=== PATIENT | female | born 1935 | race Caucasian/White ===

== ENCOUNTER 2021-10-14 13:59 | Inpatient (IN) ==
[2021-10-14] MEDS ORDERED: IOPAMIDOL 100 ML BOTTLE IV ONE (14:00)
[2021-10-14] MEDS ORDERED: 0.9 % SODIUM CHLORIDE 1,000 ML IV ONE ×2 (14:46→18:36)
--- NOTE | 2021-10-14 14:53 | Emergency Department Note ---
Weakness HPI <Jas Herrmann PA-C - Last Filed: 10/14/21 20:03> General Chief complaint: Weakness Stated complaint: weakness Time Seen by Provider: 10/14/21 14:05 Source: patient Mode of arrival: wheelchair Limitations: no limitations History of Present Illness HPI Narrative: Narrative: 86-year-old female with a history of hypertension, glaucoma, subclavian steal syndrome, left bundle branch block, carotid stent occlusion, GERD, CAD, dysphagia, gout and irritable bowel syndrome presents the ER to be evaluated for weakness. Over the last 3 days she has had a constellation of symptoms including vertigo, increased blurred vision, weakness of the upper and lower extremities and difficulty ambulating. She states she normally does not have difficulty walking but feels like her legs are noodles. She states she has not had necessarily coordination issues but feels profoundly weak. She has not had any recent illness, bouts of diarrhea or vaccinations. She denies numbness or tingling in her lower or upper extremities just weakness and the other associated symptoms. She denies confusion, focal deficit, chest pain, chest pressure, shortness of breath, dysuria, urgency, frequency or abdominal pain. She does take Plavix. She states she also accidentally took her blood pressure medication twice today, normally her blood pressure is controlled. She sees Dr. David Rodrigez for her cardiology needs. Related Data Home Medications Medication Instructions Recorded Confirmed Lactobacillus acidophilus and 1 cap PO QAM cap 06/05/19 10/16/21 rhamnosus 10 billion cell capsule (Digestive Health Probiotic) [id number] [Beano] PO PRN 06/05/19 07/09/19 ascorbate calcium (vitamin C) 1,200 mg PO DAILY 06/05/19 10/15/21 multivitamin (Daily Multi-Vitamin) 1 tab PO QAM 06/05/19 10/15/21 latanoprost 0.005 % eye drops 1 drp OPHTHALMIC (EYE) HS 10/14/21 10/15/21 lubiprostone 24 mcg capsule 1 cap PO BID 10/14/21 10/15/21 timolol maleate 0.5 % eye drops 1 drp OPHTHALMIC (EYE) BID 10/14/21 10/15/21 omeprazole 40 mg capsule,delayed 1 cap PO QAM 04/21/22 04/21/22 release Previous Rx's Medication Instructions Recorded amlodipine 10 mg tablet 10 mg PO DAILY #90 tab 07/09/19 bisoprolol fumarate 10 mg tablet 10 mg PO DAILY #90 tab 07/09/19 chlorthalidone 25 mg tablet 25 mg PO DAILY #90 tab 07/09/19 clopidogrel 75 mg tablet 75 mg PO DAILY #90 tab 07/09/19 telmisartan 80 mg tablet 80 mg PO DAILY #90 tab 05/15/20 atorvastatin 40 mg tablet 40 mg PO QPM #30 tab 08/11/20 Allergies Allergy/AdvReac Type Severity Reaction Status Date / Time codeine [Codeine] Allergy Unknown Unknown Verified 10/14/21 14:02 lisinopril Allergy unknown Verified 10/14/21 14:02 Review of Systems <Jas Herrmann PA-C - Last Filed: 10/14/21 20:03> ROS ROS Narrative: Narrative: All systems ED: reviewed and negative except as stated. PFSH <Jas Herrmann PA-C - Last Filed: 10/14/21 20:03> Narrative Patient History Narrative: Narrative: Medical/Surgical/Family History All Active Problems (Updated 10/14/21 @ 18:54 by Jas Herrmann PA-C) Accidental overdose (Acute) Weakness (Acute) Neurological symptoms (Acute) Acute hypotension (Acute) HTN (hypertension) (Chronic) Influenza vaccine refused (Chronic) History of glaucoma (Chronic) Overweight (Chronic) Sciatica (Chronic) Actinic keratosis (Chronic) History of skin cancer (Chronic) Diarrhea (Chronic) Nail dystrophy (Chronic) History of EKG (Chronic) Peripheral vascular disease (Chronic) History of mitral valve insufficiency (Chronic) History of echocardiogram (Chronic ~11/2017) Carotid bruit (Chronic) Myositis, unspecified (Chronic) Menopausal syndrome (Chronic ~09/15/17) Bladder dysfunction (Chronic ~09/15/17) Subclavian steal syndrome (Chronic) Complete left bundle branch block (Chronic) Hyperlipidemia (Chronic ~09/26/18) Carotid stent occlusion (Chronic) GERD (gastroesophageal reflux disease) (Chronic) Gout (Chronic) Coronary artery disease (Chronic) Constipation (Chronic) Dysphagia (Chronic) IBS (irritable bowel syndrome) (Chronic) Medical History (Updated 10/14/21 @ 18:54 by Jas Dombey, PA-C) Actinic keratosis Bladder dysfunction (~09/15/17) Carotid bruit Carotid stent occlusion Complete left bundle branch block Constipation Coronary artery disease Diarrhea Dysphagia GERD (gastroesophageal reflux disease) Gout History of echocardiogram (~11/2017) History of EKG History of glaucoma History of mitral valve insufficiency History of skin cancer Hyperlipidemia (~09/26/18) Hypertension IBS (irritable bowel syndrome) Menopausal syndrome (~09/15/17) Myositis, unspecified Nail dystrophy Overweight Peripheral vascular disease Sciatica Subclavian steal syndrome Surgical History H/O hemicolectomy History of appendectomy History of colonoscopy History of hysterectomy History of surgery 2 Back surgeries, back fusion History of surgery Left Thumb Hx of removal of ovary Had Endometriosis S/P right colectomy (~01/2010) For Lipoma with Dr Dyson Family History Mother Lung cancer Brother Lung cancer Asthma Diabetes mellitus Sister Lung cancer Asthma Father Myocardial infarction Pulmonary emphysema Chronic lung disease Son , Age 38 Alcoholism Hepatic failure Social History Smoking Status: Never smoker Alcohol Intake Frequency: holiday/special occasion only Substance Use: does not use Exam <Jas Herrmann PA-C - Last Filed: 10/14/21 20:03> Narrative Narrative: Narrative: Gen: No acute distress Eyes: PERRL, no conjunctival injection , and symmetrical lids. Sclerae non icteric HENMT: Normocephalic Atraumatic head, external nose and ears. Dry MM. Neck: Symmetric, trachea midline, no lymphadenopathy, no JVD CVS: +S1/S2, No murmurs or gallops. Radial pulses 2+ and equal bilat. No swelling RESP: Unlabored respiratory effort . Clear to auscultation bilaterally (CTAB). No noted wheezes rales or ronchi. GI: Nontender/Nondistended (NTND), No focal tenderness MSK: Extremities w/o deformity or ttp. No cyanosis or clubbing. Skin: Warm, Dry . No rashes or lesions . Cap refill less than 2. Neuro: Cranial nerves III through XII intact, patient has normal rate and rhythm of speech, normal [id number], normal aeqp-jk-klav, normal strength in the upper and lower extremities to exam. Weakness is subjective to patient. Normal rapid alternating movement. No obvious cerebellar signs. Psych: Awake, Alert, & Oriented (AAO) x3. Appropriate mood and affect . General Limitations: no limitations Course <Jas Herrmann PA-C - Last Filed: 10/14/21 20:03> Vital Signs Vital signs: Vital Signs Temperature 98.4 F 10/14/21 14:00 Pulse Rate 73 10/14/21 14:00 Respiratory Rate 18 10/14/21 14:00 Blood Pressure 181/70 10/14/21 14:00 Pulse Oximetry (%) 96 10/14/21 14:00 Temperature 98.2 F 10/16/21 08:01 Pulse Rate 66 10/16/21 08:01 Respiratory Rate 16 10/16/21 10:01 Blood Pressure 139/53 10/16/21 10:01 Pulse Oximetry (%) 92 10/16/21 10:01 [facility] <Jas Herrmann PA-C - Last Filed: 10/14/21 20:03> MDM Narrative Medical decision making narrative: Narrative: Given the constellation of symptoms including vision changes, vertigo, upper and lower extremity weakness and ataxia for the last 3 days I have concern for posterior fossa stroke. Patient will be evaluated with CT and CTA. She does have a history of subclavian steal syndrome as well as carotid stenosis with a previous occluded stent. She is a vasculopath and at high risk for sequelae to include stroke. She does have a rather unremarkable exam and her NIH would be 0 at this time however her symptoms are consistent with this pathology. Ojsbl-yu-cexp creatinine will be obtained and if her kidney function is normal she will be evaluated with a CT of the head and CTA of the head and neck. Coags, EKG, CBC and CMP are to follow. Patient is hypotensive with a systolic in the 80s. She took 2 doses of her blood pressure medication on accident she will be given a 1 L fluid bolus at this time and will be monitored. She takes amlodipine, bisoprolol, chlorthalidone and telmisartan. She took all of these medications twice CBC: Unremarkable CMP: Unremarkable Coags: Unremarkable EKG: Normal sinus rhythm with a left bundle branch block at a rate of 72 bpm, negative Sgarrbossa criteria, no evidence of acute ischemia. CT head:IMPRESSION: Mild atrophy and chronic ischemic changes in the deep cerebral white matter-expected for age. No acute findings CTA Head: IMPRESSION: 1. No evidence of thrombus or embolus within the intracerebral arterial vasculature. 2. 80% stenosis of the posterior M2 division right middle cerebral artery. 3. Heavy calcific plaque in the cavernous segments of both intracranial internal carotid arteries resulting in mild-less than 50% stenoses 4. Scattered stenoses ranging up to 50% within the remaining anterior middle and posterior cerebral arteries. CTA Neck: IMPRESSION: Heavy calcific atherosclerotic plaque throughout the brachiocephalic artery resulting in a stenosis of 50% or greater. Calcific plaque in the proximal left subclavian artery resulting in stenosis less then 50% Both vertebral, internal common and external carotid arteries are widely patent Patient remains neurologically intact however her blood pressure has been hovering around a map of 65 occasionally of a MAP in the 50s. She is normally mentating. However I am reluctant to ambulate her with her blood pressure being this low. Her neurological exam is otherwise completely normal with an NIH of 0. I would like to bring her in for observation due to the ingestion of her blood pressure medications and her secondary hypotension. I will also reach out to [facility] to discuss the case and her stenosis of the M2 segment of her brain. Dr Castillo: Graciously agreed to accept the patient but would like me to discuss with neurology how to work-up this patient. Work up like stroke? Echo, Mri? Pressors for pressure? Guillain Ava? [facility]: Dr Dhillon: Concerned for low blood pressure, incidental findings, Once blood pressure normalizes she suggests MRI. Consider adding 81mg aspirin on top of plavix due to intracranial and extracranial stenos is and possibly increasing statin. PT/OT consult. Patient will be given another liter of fluids, gram of calcium gluconate will be started on a Levophed drip. Dr. Castillo will be down shortly to see the patient. She does have a POLST form filled out that is at [facility]. She does wish to have her blood pressure corrected even if that requires ICU level care with vasopressors. She however likely will not be amenable to MRI or echocardiogram as she sees no use in these given her age. Patient states she was having chest pressure before she went up to the floor. Repeat EKG was obtained. Normal sinus rhythm rate of 85 bpm with left bundle branch block. Baseline wander in leads II, III and aVF. When compared to previous earlier there are no significant changes no evidence of acute ischemia. Iswiq-ts-hbjl troponin was obtained. Point care troponin: Lab Data Result diagrams: 10/16/21 05:28 10/16/21 05:28 Labs: Lab Results 10/14/21 10/14/21 10/14/21 Range/Units 14:45 14:45 14:45 WBC 11.5 H (4.5-11.0) K/mcL RBC 4.60 (3.59-5.38) M/mcL Hgb 13.5 (11.2-15.7) g/dL Hct 39.8 (34.1-44.9) % MCV 86.5 (80.0-100.0) fL MCH 29.3 (26.0-34.0) pg MCHC 33.9 (31.0-36.0) g/dL RDW 12.5 (11.5-14.5) % Plt Count 340 (140-440) K/mcL MPV 9.3 (7.4-10.4) fL Neut % (Auto) 60.1 (38.0-78.0) % Lymph % (Auto) 26.3 (15.5-49.0) % [place] % (Auto) 11.2 (1.0-12.0) % Eos % (Auto) 1.7 (0.0-7.0) % Baso % (Auto) 0.7 (0.0-2.0) % Lymph # (Auto) 3.02 (1.50-4.80) K/mcL [place] # (Auto) 1.28 H (0.10-0.90) K/mcL Eos # (Auto) 0.19 (0.00-0.70) K/mcL Baso # (Auto) 0.08 (0.00-0.30) K/mcL Absolute Neutrophils 6.90 (1.80-8.00) K/mcL PT 13.7 (11.9-14.5) sec INR 1.0 (0.9-1.1) APTT 29.7 (20.0-37.0) sec Sodium 134 (133-145) mmol/L Potassium 3.4 (3.3-5.1) mmol/L Chloride 95 L (96-108) mmol/L Carbon Dioxide 26 (22-30) mmol/L Anion Gap 13.0 (8.0-16.0) BUN 18 (8-23) mg/dL Creatinine 0.8 (0.6-1.1) mg/dL POC Creatinine GFR Calculation 66 Glucose 119 H (70-105) mg/dL Calcium 9.8 (8.6-10.4) mg/dL Total Bilirubin 0.4 (0.1-1.0) mg/dL AST 26 (<32) U/L ALT 18 (<40) U/L Alkaline Phosphatase 52 (39-117) U/L Total Protein 7.4 (5.9-8.4) gm/dL Albumin 4.1 (3.2-5.2) gm/dL Globulin 3.3 (2.2-3.7) gm/dL Albumin/Globulin Ratio 1.2 (1.0-2.3) POC Troponin I 10/14/21 10/14/21 10/14/21 Range/Units 15:06 15:10 20:18 WBC (4.5-11.0) K/mcL RBC (3.59-5.38) M/mcL Hgb (11.2-15.7) g/dL Hct (34.1-44.9) % MCV (80.0-100.0) fL MCH (26.0-34.0) pg MCHC (31.0-36.0) g/dL RDW (11.5-14.5) % Plt Count (140-440) K/mcL MPV (7.4-10.4) fL Neut % (Auto) (38.0-78.0) % Lymph % (Auto) (15.5-49.0) % [place] % (Auto) (1.0-12.0) % Eos % (Auto) (0.0-7.0) % Baso % (Auto) (0.0-2.0) % Lymph # (Auto) (1.50-4.80) K/mcL [place] # (Auto) (0.10-0.90) K/mcL Eos # (Auto) (0.00-0.70) K/mcL Baso # (Auto) (0.00-0.30) K/mcL Absolute Neutrophils (1.80-8.00) K/mcL PT (11.9-14.5) sec INR (0.9-1.1) APTT (20.0-37.0) sec Sodium (133-145) mmol/L Potassium (3.3-5.1) mmol/L Chloride (96-108) mmol/L Carbon Dioxide (22-30) mmol/L Anion Gap (8.0-16.0) BUN (8-23) mg/dL Creatinine (0.6-1.1) mg/dL POC Creatinine 0.9 GFR Calculation Glucose (70-105) mg/dL Calcium (8.6-10.4) mg/dL Total Bilirubin (0.1-1.0) mg/dL AST (<32) U/L ALT (<40) U/L Alkaline Phosphatase (39-117) U/L Total Protein (5.9-8.4) gm/dL Albumin (3.2-5.2) gm/dL Globulin (2.2-3.7) gm/dL Albumin/Globulin Ratio (1.0-2.3) POC Troponin I 0.01 ED POC Tests ED POC Tests: LINDA - SARS Antigen Negative CC TIME <Jas Herrmann PA-C - Last Filed: 10/14/21 20:03> Critical Care Time Critical Care Time: Yes Total Critical Care Time: 45 Attestation: Total critical care time of 45min including performance of history and physical exam, review of results, re-examinations, time spent documenting, psychiatric orderly, review of old records, discussions with patient and family, discussions with sr solutions consultant(s), discussion with admitting physician, completion of admission/transfer paperwork. This does not include time for any separately documented procedures. Discharge Plan Patient/Caregiver Discharge Instructions Pt seen by COMPLIANCE AIDE/PA only: No Clinical Impression: Accidental overdose, Weakness, Neurological symptoms, Acute hypotension Patient Disposition: Xfer As Inpt ([facility]) Discharge Date/Time: 10/14/21 20:43 Discharge Location: [facility]
[2021-10-14 15:27] LABS: Basophils # (Auto) 0.08 K/mcL (0.00-0.30); Basophils % (Auto) 0.7 % (0.0-2.0); Eosinophils # (Auto) 0.19 K/mcL (0.00-0.70); Eosinophils % (Auto) 1.7 % (0.0-7.0); Hematocrit 39.8 % (34.1-44.9); Hemoglobin 13.5 g/dL (11.2-15.7); Lymphocytes # (Auto) 3.02 K/mcL (1.50-4.80); Lymphocytes % (Auto) 26.3 % (15.5-49.0); Mean Cell Volume 86.5 fL (80.0-100.0); Mean Corpuscular HGB Conc 33.9 g/dL (31.0-36.0); Mean Platelet Volume 9.3 fL (7.4-10.4); Monocytes # (Auto) 1.28 K/mcL (0.10-0.90); Monocytes % (Auto) 11.2 % (1.0-12.0); Neutrophils % (Auto) 60.1 % (38.0-78.0); Platelet Count 340 K/mcL (140-440); Red Cell Distribution Width 12.5 % (11.5-14.5); WBC 11.5 K/mcL (4.5-11.0)
[2021-10-14 15:41] LABS: Partial Thromboplastin Time 29.7 sec (20.0-37.0); Prothrombin Time 13.7 sec (11.9-14.5)
[2021-10-14 15:44] LABS: ALT/SGPT 18 U/L (<40); AST/SGOT 26 U/L (<32); Albumin 4.1 gm/dL (3.2-5.2); Albumin/Globulin Ratio 1.2 (1.0-2.3); Alkaline Phosphatase 52 U/L (39-117); Bilirubin,Total 0.4 mg/dL (0.1-1.0); Blood Urea Nitrogen 18 mg/dL (8-23); Calcium 9.8 mg/dL (8.6-10.4); Carbon Dioxide 26 mmol/L (22-30); Chloride 95 mmol/L (96-108); Globulin 3.3 gm/dL (2.2-3.7); Glomerular Filtration Rate 66; Glucose 119 mg/dL (70-105)
--- NOTE | 2021-10-14 15:48 | Cat Scan Report ---
CLINICAL INFORMATION: Code stroke COMPARISON: None. TECHNIQUE: 2.5 mm helical slices were obtained in the skull base to vertex. Following reconstruction, axial reformatted images were reviewed at bone and parenchymal windows. The exam was performed using radiation dose optimization techniques including, but not limited to, automated exposure control, adjustment of the mA and/or kV according to patient size and use of iterative reconstruction technique. FINDINGS: The ventricles, sulci, fissures, and cisterns are symmetrically enlarged compatible with mild age-related atrophy. No extra-axial fluid collections are identified. Mild patchy chronic ischemic changes, in the deep cerebral white matter, are expected for age. There is no hemorrhage, mass effect, or edema. Bone windows show no osseous abnormality. IMPRESSION: Mild atrophy and chronic ischemic changes in the deep cerebral white matter-expected for age. No acute findings Interpreted and Authenticated by: Lalit Maldonado 10/14/21
--- NOTE | 2021-10-14 16:07 | Cat Scan Report ---
CLINICAL INFORMATION: Code stroke COMPARISON: None. TECHNIQUE: 80 cc of Isovue-370 were injected intravenously , and using SmartPrep to maximize cerebral arterial opacification, 0.625 mm helical slices were obtained from the skull base through the cerebral vertex. Following reconstruction , sagittal, coronal and axial reformatted images were processed and reviewed at multiple windows and levels. 3D volume rendered and MIP images were acquired at a independent workstation. The exam was performed using radiation dose optimization techniques including, but not limited to, automated exposure control, adjustment of the mA and/or kV according to patient size and use of iterative reconstruction technique. FINDINGS: There is heavy calcification within the cavernous segment of both intracranial internal carotid arteries resulting in mild less than 50% stenoses. 80% stenosis of the posterior division M2 right middle cerebral artery appreciated. The remainder of both middle cerebral, anterior and posterior cerebral arteries show scattered mild stenoses ranging up to 50%. There is no evidence of embolism or thrombosis. The superficial and deep cerebral veins and deep venous sites are widely patent. IMPRESSION: 1. No evidence of thrombus or embolus within the intracerebral arterial vasculature. 2. 80% stenosis of the posterior M2 division right middle cerebral artery. 3. Heavy calcific plaque in the cavernous segments of both intracranial internal carotid arteries resulting in mild-less than 50% stenoses 4. Scattered stenoses ranging up to 50% within the remaining anterior middle and posterior cerebral arteries. Interpreted and Authenticated by: Lalit Maldonado 10/14/21
--- NOTE | 2021-10-14 16:13 | Cat Scan Report ---
CLINICAL INFORMATION: Code stroke COMPARISON: None. TECHNIQUE: 80 cc of Isovue-300 were injected intravenously followed by 40 cc of normal saline flush. Using SmartPrep, 0.625 helical slices were obtained from the thoracic aortic arch through the [place]. Following reconstruction, 2.5 mm sagittal, coronal and axial reformatted images were processed. MIPS , 3-D volume rendering and CPR images were also constructed. The exam was performed using radiation dose optimization techniques including, but not limited to, automated exposure control, adjustment of the mA and/or kV according to patient size and use of iterative reconstruction technique. FINDINGS: The thoracic aortic arch is normal diameter with minimal intimal thickening and conventional aortic branching. Extremely heavy calcific plaque in the brachiocephalic artery obscures the true lumen. There is stenosis of 50% or greater in this region. The cardiac artifact from heavy calcification precludes accurate grading. There is also moderate calcific plaque in the proximal subclavian artery resulting in a stenosis less than 50%. The remainder of both subclavian, both vertebral both common internal and external carotid arteries are widely patent. No soft tissue abnormality. IMPRESSION: Heavy calcific atherosclerotic plaque throughout the brachiocephalic artery resulting in a stenosis of 50% or greater. Calcific plaque in the proximal left subclavian artery resulting in stenosis less then 50% Both vertebral, internal common and external carotid arteries are widely patent Interpreted and Authenticated by: Lalit Maldonado 10/14/21
[2021-10-14] MEDS ORDERED: CALCIUM GLUCONATE 4.65 MEQ/10 ML VIAL IV ONE (18:40)
--- NOTE | 2021-10-14 19:00 | Internal Med History&Physical ---
HPI History of Present Illness Patient information: Note initiated : 10/14/21 at 6:54 pm Service Date, if different from initiated Date: [] Patient: Dinorah Solorio 86 y/o F admitted on for weakness. Chief Complaint: [] History of present illness: Ms. 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 The patient presented to the emergency department with her daughter for difficulty walking, generalized weakness that has been bothering her for about 3 days as well as lack of appetite for about 7 days. In the emergency department there was concern for possible stroke, the patient had a noncontrast CT head followed by a CTA head and neck.There were no acute findings on the CT scans, the CTA head did show a 80% stenosis in the right M2 division of the right middle cerebral artery. There was heavy calcified plaque in the cavernous segment of both intracranial internal carotid arteries resulting in less than 50% stenosis. There was scattered stenosis up to 50% in the remaining anterior middle and posterior c erebral arteries. The CTA neck showed heavy calcific atherosclerotic plaque throughout the brachiocephalic artery resulting in stenosis of 50% or greater, calcified plaque in the proximal left subclavian artery resulting in stenosis less than 50%. Both vertebral internal common and external carotid arteries were widely patent. In addition, the patient was found to be extremely hypotensive. She did say that she took extra blood pressure pills today which is likely the reason for hypotension. Patient's vitals were otherwise stable. CBC showed a mild leukocytosis, complete metabolic panel was unremarkable. Telemetry stroke neurology was consulted, recommended a complete stroke work-up, starting aspirin and Plavix and maintaining normal blood pressure. Hospital medicine was consulted for admission. We discussed the plan of care in detail. The patient does not want an MRI or an echocardiogram as she does not feel it will chemical cell changer. She is okay with starting aspirin and Plavix as well as vasopressor support to maintain blood pressure. The patient wishes to be DNR/DNI. Review of systems Constitutional: Positive for fatigue, no fevers Eyes: no vision changes or pain Cardiovascular: no chest pain, no palpitations Respiratory: no cough or dyspnea Gastrointestinal: Positive for lack of appetite, early satiety. Genitourinary: no dysuria or difficulty voiding Musculoskeletal: no arthralgia or myalgia Integumentary: no skin lesion or wound Neurological: no focal weakness or numbness Psychiatric: no anxiety or depression Physical exam Head: Atraumatic, normal inspection. Eyes: normal appearance, no scleral icterus. Neck: full ROM Respiratory: no respiratory distress. Cardiovascular: normal rate and rhythm, S1, S2. GI/Abdominal: soft, nontender, no guarding. Extremities: full range of motion, nontender. Neurological: CN II-XII intact, intact motor, intact sensation. Psychiatric: normal mood. Skin: warm, normal color PFSH PFSH All Active Problems (Updated 10/14/21 @ 18:54 by Jas Herrmann PA-C) Accidental overdose (Acute) Weakness (Acute) Neurological symptoms (Acute) Acute hypotension (Acute) HTN (hypertension) (Chronic) Influenza vaccine refused (Chronic) History of glaucoma (Chronic) Overweight (Chronic) Sciatica (Chronic) Actinic keratosis (Chronic) History of skin cancer (Chronic) Diarrhea (Chronic) Nail dystrophy (Chronic) History of EKG (Chronic) Peripheral vascular disease (Chronic) History of mitral valve insufficiency (Chronic) History of echocardiogram (Chronic ~11/2017) Carotid bruit (Chronic) Myositis, unspecified (Chronic) Menopausal syndrome (Chronic ~09/15/17) Bladder dysfunction (Chronic ~09/15/17) Subclavian steal syndrome (Chronic) Complete left bundle branch block (Chronic) Hyperlipidemia (Chronic ~09/26/18) Carotid stent occlusion (Chronic) GERD (gastroesophageal reflux disease) (Chronic) Gout (Chronic) Coronary artery disease (Chronic) Constipation (Chronic) Dysphagia (Chronic) IBS (irritable bowel syndrome) (Chronic) Medical History (Updated 10/14/21 @ 18:54 by Jas Herrmann PA-C) Actinic keratosis Bladder dysfunction (~09/15/17) Carotid bruit Carotid stent occlusion Complete left bundle branch block Constipation Coronary artery disease Diarrhea Dysphagia GERD (gastroesophageal reflux disease) Gout History of echocardiogram (~11/2017) History of EKG History of glaucoma History of mitral valve insufficiency History of skin cancer Hyperlipidemia (~09/26/18) Hypertension IBS (irritable bowel syndrome) Menopausal syndrome (~09/15/17) Myositis, unspecified Nail dystrophy Overweight Peripheral vascular disease Sciatica Subclavian steal syndrome Surgical History H/O hemicolectomy History of appendectomy History of colonoscopy History of hysterectomy History of surgery 2 Back surgeries, back fusion History of surgery Left Thumb Hx of removal of ovary Had Endometriosis S/P right colectomy (~01/2010) For Lipoma with Dr Dyson Family History Mother Lung cancer Brother Lung cancer Asthma Diabetes mellitus Sister Lung cancer Asthma Father Myocardial infarction Pulmonary emphysema Chronic lung disease Son , Age 38 Alcoholism Hepatic failure Social History (Updated 07/11/19 @ 18:22 by Lanette Whitaker PA-C) marital status: occupational status: retired alcohol intake frequency: holiday/special occasion only substance use type: does not use MEDS/ALLERGIES Home Medications and Allergies Home Medications Medication Instructions Recorded Confirmed Type Lactobacillus acidophilus and cap PO QAM cap 06/05/19 07/09/19 History rhamnosus 10 billion cell capsule (Digestive Health Probiotic) [id number] [Beano] PO PRN 06/05/19 07/09/19 History ascorbate calcium (vitamin C) 1,200 mg PO 06/05/19 07/09/19 History multivitamin (Daily Multi-Vitamin) 1 tab PO QAM 06/05/19 07/09/19 History amlodipine 10 mg tablet 10 mg PO DAILY #90 tab 07/09/19 07/09/19 Rx bisoprolol fumarate 10 mg tablet 10 mg PO DAILY #90 tab 07/09/19 07/09/19 Rx chlorthalidone 25 mg tablet 25 mg PO DAILY #90 tab 07/09/19 07/09/19 Rx clopidogrel 75 mg tablet 75 mg PO DAILY #90 tab 07/09/19 07/09/19 Rx linaclotide 290 mcg capsule 290 mcg PO QDAY 07/09/19 07/09/19 History (Linzess) omeprazole 20 mg capsule,delayed 20 mg PO QDAY #90 cap 07/09/19 07/09/19 Rx release telmisartan 80 mg tablet 80 mg PO DAILY #90 tab 05/15/20 Rx atorvastatin 40 mg tablet 40 mg PO QPM #30 tab 08/11/20 Rx latanoprost 0.005 % eye drops 1 drp OPHTHALMIC (EYE) HS 10/14/21 History lubiprostone 24 mcg capsule 1 cap PO BID 10/14/21 History timolol maleate 0.5 % eye drops 1 drp OPHTHALMIC (EYE) BID 10/14/21 History Allergies Allergy/AdvReac Type Severity Reaction Status Date / Time codeine [Codeine] Allergy Unknown Unknown Verified 10/14/21 14:02 lisinopril Allergy unknown Verified 10/14/21 14:02 EXAM Constitutional Vitals: Temp Pulse Resp BP Pulse Ox 98.4 F 79 15 65/53 97 10/14/21 14:00 10/14/21 16:31 10/14/21 18:41 10/14/21 18:41 10/14/21 16:31 DATA Data Completed and Pending Labs: Labs from last 24 hours 10/14/21 10/14/21 10/14/21 15:10 15:06 14:45 WBC RBC Hgb Hct MCV MCH MCHC RDW Plt Count MPV Neut % (Auto) Lymph % (Auto) [place] % (Auto) Eos % (Auto) Baso % (Auto) Lymph # (Auto) [place] # (Auto) Eos # (Auto) Baso # (Auto) Absolute Neutrophils PT 13.7 INR 1.0 APTT 29.7 Sodium Potassium Chloride Carbon Dioxide Anion Gap BUN Creatinine POC Creatinine 0.9 GFR Calculation Glucose Calcium Total Bilirubin AST ALT Alkaline Phosphatase Total Protein Albumin Globulin Albumin/Globulin Ratio 10/14/21 10/14/21 14:45 14:45 WBC 11.5 H RBC 4.60 Hgb 13.5 Hct 39.8 MCV 86.5 MCH 29.3 MCHC 33.9 RDW 12.5 Plt Count 340 MPV 9.3 Neut % (Auto) 60.1 Lymph % (Auto) 26.3 [place] % (Auto) 11.2 Eos % (Auto) 1.7 Baso % (Auto) 0.7 Lymph # (Auto) 3.02 [place] # (Auto) 1.28 H Eos # (Auto) 0.19 Baso # (Auto) 0.08 Absolute Neutrophils 6.90 PT INR APTT Sodium 134 Potassium 3.4 Chloride 95 L Carbon Dioxide 26 Anion Gap 13.0 BUN 18 Creatinine 0.8 POC Creatinine GFR Calculation 66 Glucose 119 H Calcium 9.8 Total Bilirubin 0.4 AST 26 ALT 18 Alkaline Phosphatase 52 Total Protein 7.4 Albumin 4.1 Globulin 3.3 Albumin/Globulin Ratio 1.2 A/P Narrative A/P Narrative: Assessment: #Generalized weakness #Anorexia for about 7 days #Early satiety #Concern for ischemic stroke #Right MCA 80% stenosis #Acute hypotension due to unintentional antihypertensive medication overdose #Subclavian steal syndrome s/p subclavian artery stent 2018 #Coronary artery disease #Peripheral artery disease #Essential hypertension #Hyperlipidemia #Dysphagia #Hiatal hernia #GERD #Gout #Glaucoma #Obesity Plan -IV fluid, monitor volume status. -Levophed as needed to keep MAP > 65. -Dual antiplatelet therapy with Aspirin and Plavix. -Continue home atorvastatin. -Check lipid panel and hemoglobin A1c. -Neurochecks and NIHSS. -Patient declined MRI brain and echocardiogram. -Monitor diet intake, consider further work-up for anorexia and early satiety. -Home home antihypertensives. -Home medication reconciliation. -PT and OT consult. -Dysphagia #6 diet with mildly thick fluids for now. 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 -DVT prophylaxis: Lovenox -Code status: DNR/DNI -Disposition: TBD Time Spent With Patient Time: Total time spent is greater than 50% in coordination of care (as documented) at patient's floor/unit and/or counseling patient:
[2021-10-14] MEDS: NOREPINEPHRINE BITARTRATE 8 MG in 0.9 % SODIUM CHLORIDE 242 ML IV SCH (19:07)
[2021-10-14] MEDS ORDERED: CLOPIDOGREL 75 MG TABLET PO ONE (20:01)
[2021-10-14] MEDS ORDERED: ASPIRIN 81 MG TAB.CHEW CHEWED ONE (20:01)
[2021-10-14] MEDS: 0.9 % SODIUM CHLORIDE 250 ML IV SCH (20:35)
[2021-10-14] MEDS ORDERED: SENNOSIDES 1 TABLET PO PRN (20:47)
[2021-10-14] MEDS ORDERED: ONDANSETRON 4 MG/2 ML VIAL IV PRN (20:47)
[2021-10-14] MEDS ORDERED: LACTULOSE 20 GM/30 ML ORAL.SOL PO PRN (20:47)
[2021-10-14] MEDS: 0.9 % SODIUM CHLORIDE 1,000 ML IV SCH (21:57)
[2021-10-14] MEDS: DOCUSATE SODIUM 100 MG CAPSULE PO SCH (21:57)
[2021-10-14] MEDS: 0.9 % SODIUM CHLORIDE 10 ML SYRINGE IV SCH (21:59)
[2021-10-15] MEDS: 0.9 % SODIUM CHLORIDE 1,000 ML IV SCH ×3 (05:58→18:46)
[2021-10-15] MEDS: 0.9 % SODIUM CHLORIDE 10 ML SYRINGE IV SCH ×3 (05:59→21:59)
--- NOTE | 2021-10-15 06:58 | EKG ---
[facility] Test Date: 2021-10-14 Pat Name: Dinorah Solorio Department: ED Room: Gender: Female Policy Officer: RAMANA : 1935 Requested By: Jas Herrmann Order Number: [id number] Reading MD: Elías Wilson D.O. Measurements Intervals [place] Rate: 72 P: -66 NC: 170 QRS: -13 QRSD: 144 T: 124 QT: 461 QTc: 505 Interpretive Statements Sinus or ectopic atrial rhythm Ventricular premature complex Left bundle branch block Electronically Signed On 10-15-2021 6:58:18 PDT by Elías Wilson D.O. /store/[email or web address]/[id number]
--- NOTE | 2021-10-15 07:01 | EKG ---
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 Measurements Intervals [place] Rate: 85 P: 70 SD: 231 QRS: -8 QRSD: 141 T: 139 QT: 400 QTc: 476 Interpretive Statements Sinus rhythm Prolonged SD interval Left bundle branch block Electronically Signed On 10-15-2021 7:01:20 PDT by Elías Wilson D.O. /[email or web address]/[email or web address]/[id number]
[2021-10-15 07:13] LABS: ALT/SGPT 13 U/L (<40); AST/SGOT 21 U/L (<32); Albumin 3.5 gm/dL (3.2-5.2); Albumin/Globulin Ratio 1.2 (1.0-2.3); Alkaline Phosphatase 42 U/L (39-117); Bilirubin,Direct < 0.2 mg/dL (0-0.3); Bilirubin,Total 0.3 mg/dL (0.1-1.0); Blood Urea Nitrogen 12 mg/dL (8-23); Calcium 9.2 mg/dL (8.6-10.4); Carbon Dioxide 23 mmol/L (22-30); Chloride 105 mmol/L (96-108); Globulin 2.9 gm/dL (2.2-3.7); Glomerular Filtration Rate 78; Glucose 95 mg/dL (70-105); HDL Cholesterol 52 mg/dL (>40); LDL Cholesterol,Calculated 71 mg/dL (<100); Lactate Dehydrogenase 150 U/L (135-225); Non-HDL Cholesterol 98 mg/dL (<130); Phosphorous 2.8 mg/dL (2.5-4.5); Triglycerides 140 mg/dL (<150)
[2021-10-15 07:14] LABS: Estimated Average Glucose(eAG) 114 mg/dL; Hemoglobin A1C 5.6 % Hgb (4.0-6.0)
[2021-10-15] MEDS ORDERED: LABETALOL 5 MG/ML ML IV PRN (07:44)
[2021-10-15] MEDS ORDERED: hydrALAZINE 20 MG/ML VIAL IV PRN (07:44)
[2021-10-15] MEDS ORDERED: POTASSIUM CHLORIDE 20 MEQ TABLET PO ONE (07:46)
[2021-10-15] MEDS: ENOXAPARIN 40 MG/0.4 ML SYRINGE SQ SCH (10:08)
[2021-10-15] MEDS: DOCUSATE SODIUM 100 MG CAPSULE PO SCH ×2 (10:09→21:58)
[2021-10-15] MEDS: CLOPIDOGREL 75 MG TABLET PO SCH (10:09)
[2021-10-15] MEDS: ASPIRIN 81 MG TAB.CHEW CHEWED SCH (10:09)
[2021-10-15] MEDS: NOREPINEPHRINE BITARTRATE 8 MG in 0.9 % SODIUM CHLORIDE 242 ML IV SCH ×2 (11:11→23:16)
[2021-10-15] MEDS: 0.9 % SODIUM CHLORIDE 250 ML IV SCH ×2 (11:16→21:58)
--- NOTE | 2021-10-15 15:11 | Internal Med Progress Note ---
SUBJECTIVE Subjective Patient information: Note initiated : 10/15/21 at 3:08 pm Service Date, if different from initiated Date: [] Patient: Dinorah Solorio 86 y/o F admitted on 10/14/21 for weakness. Chief Complaint: [] Interval history: Ms. 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 The patient presented to the emergency department with her daughter for difficulty walking, generalized weakness that has been bothering her for about 3 days as well as lack of appetite for about 7 days. In the emergency department there was concern for possible stroke, the patient had a noncontrast CT head followed by a CTA head and neck.There were no acute findings on the CT scans, the CTA head did show a 80% stenosis in the right M2 division of the right middle cerebral artery. There was heavy calcified plaque in the cavernous segment of both intracranial internal carotid arteries resulting in less than 50% stenosis. There was scattered stenosis up to 50% in the remaining anterior middle and posterior cerebral arteries. The CTA neck showed heavy calcific atherosclerotic plaque throughout the brachiocephalic artery resulting in stenosis of 50% or greater, calcified plaque in the proximal left subclavian artery resulting in stenosis less than 50%. Both vertebral internal common and external carotid arteries were widely patent. In addition, the patient was found to be extremely hypotensive. She did say that she took extra blood pressure pills today which is likely the reason for hypotension. Patient's vitals were otherwise stable. CBC showed a mild leukocytosis, complete metabolic panel was unremarkable. Telemetry stroke neurology was consulted, recommended a complete stroke work-up, starting aspirin and Plavix and maintaining normal blood pressure. Hospital medicine was consulted for admission. We discussed the plan of care in detail. 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 She is okay with starting aspirin and Plavix as well as vasopressor support to maintain blood pressure. The patient wishes to be DNR/DNI. 10/15 Patient was off Levophed overnight but resumed this morning for hypotension. Patient was able to ambulate with a walker and physical therapy in the hallway. Feels better overall but continues to require Levophed. Discussed expanding work-up for hypotension if unable to wean off the Levophed by the afternoon. Physical exam Head: Atraumatic, normal inspection. Eyes: normal appearance, no scleral icterus. Neck: full ROM Respiratory: no respiratory distress. Cardiovascular: normal rate and rhythm, S1, S2. GI/Abdominal: soft, nontender, no guarding. Extremities: full range of motion, nontender. Neurological: CN II-XII intact, intact motor, intact sensation. Psychiatric: normal mood. Skin: warm, normal color Constitutional Vitals: Vital Signs Temp Pulse Resp BP Pulse Ox 97.7 F 72 14 106/91 99 10/15/21 11:48 10/15/21 13:16 10/15/21 07:01 10/15/21 14:03 10/15/21 13:16 Period Temp Pulse Resp BP Sys/[place] Pulse Ox Last 24 Hr 97.6 F-98.4 F 46-101 11-32 45-172/37-98 88-100 Intake and Output 10/15/21 10/15/21 10/15/21 05:59 13:59 21:59 Intake Total 1000 1232 Output Total 350 1000 250 Balance 650 232 -250 Intake & Output: Intake & Output 10/15/21 10/15/21 10/15/21 05:59 13:59 21:59 Intake Total 1000 1232 Output Total 350 1000 250 Balance 650 232 -250 Intake: IV 1000 992 Sodium Chloride 0.9% 1,000 ml @ 1000 942 125 mls/hr IV .Q8H [facility] Rx#: [id number] Sodium Chloride 0.9% 250 ml @ 0 20 mls/hr IV .[id number] [facility] Rx#: [id number] Levophed 8 mg In Sodium 50 Chloride 0.9% 242 ml @ 10 MCG/ MIN 18.75 mls/hr IV Q14H E[facility] Rx #:[id number] Oral 240 Output: Void Amount 350 1000 250 Other: Meal Lunch Percent of Meal Consumed 75% Feeding Ability Independent Urine Appearance Clear Clear Clear Urine Color Bright Yellow Pale Pale Urine Odor Normal # Voids 300 OBJ DATA Labs CBC & Chem 7: 10/14/21 14:45 10/15/21 05:10 Labs: Abnormal Lab Results 10/14/21 10/14/21 14:45 14:45 WBC 11.5 H [place] # (Auto) 1.28 H Chloride 95 L Glucose 119 H Meds: Medications Aspirin (Aspirin 81 Mg Tab.Chew) 81 mg CHEWED DAILY [facility] Last Admin: 10/15/21 10:09 Dose: 81 mg Documented by: Clopidogrel Bisulfate (Clopidogrel 75 Mg Tablet) 75 mg PO DAILY [facility] Last Admin: 10/15/21 10:09 Dose: 75 mg Documented by: Docusate Sodium (Docusate Sodium 100 Mg Capsule) 100 mg PO BID [facility] Last Admin: 10/15/21 10:09 Dose: Not Given Documented by: Enoxaparin Sodium (Enoxaparin 40 Mg/0.4 Ml Syringe) 40 mg SQ DAILY [facility] Last Admin: 10/15/21 10:08 Dose: 40 mg Documented by: Hydralazine HCl (Hydralazine 20 Mg/Ml Vial) 10 mg IV Q4-6HP PRN PRN Reason: Blood Pressure - High Norepinephrine Bitartrate 8 mg (/ Sodium Chloride) 250 mls @ 18.75 mls/hr IV Q14H [facility]; Protocol Last Titration: 10/15/21 13:30 Dose: 7 mcg/min, 13.125 mls/hr Documented by: Sodium Chloride (Sodium Chloride 0.9%) 250 mls @ 20 mls/hr IV .[id number] [facility] Last Admin: 10/15/21 11:16 Dose: Not Given Documented by: Sodium Chloride (Sodium Chloride 0.9%) 1,000 mls @ 75 mls/hr IV .[id number] [facility] Last Admin: 10/15/21 14:28 Dose: 75 mls/hr Documented by: Labetalol HCl (Labetalol 5 Mg/Ml Ml) 10 mg IV Q10M PRN PRN Reason: Blood Pressure - High Lactulose (Lactulose 20 Gm/30 Ml Oral.[place]) 10 gm PO DAILYP PRN PRN Reason: Constipation Ondansetron HCl (Ondansetron 4 Mg/2 Ml Vial) 4 mg IV Q4HP PRN; Protocol PRN Reason: Nausea And Vomiting Pneumococcal Polyvalent Vaccine (Pneumococcal 23-Milagros P-Sac Vac 0.5 Ml Syringe) 0.5 ml IM .ONCE ONE Stop: 10/17/21 10:01 Senna (Sennosides 1 Tablet) 2 tab PO HSP PRN PRN Reason: Constipation Sodium Chloride (0.9 % Sodium Chloride 10 Ml Syringe) 10 ml IV Q8 [facility] Last Admin: 10/15/21 14:28 Dose: 10 ml Documented by: A/P Narrative A/P Narrative: Assessment: 86-year-old female with multiple comorbidities admitted for generalized weakness, approximately 7 days of anorexia and early satiety as well as hypotension initially felt to be related to the patient taking an extra days worth of blood pressure medications. #Generalized weakness #Anorexia for about 7 days #Early satiety #Initial concern for acute in ischemic stroke however seems increasingly unlikely -The patient declined MRI brain. -Right MCA 80% stenosis noted on CTA head. #Acute hypotension due to unintentional antihypertensive medication overdose #Subclavian steal syndrome s/p subclavian artery stent 2018 #Coronary artery disease #Peripheral artery disease #Essential hypertension #Hyperlipidemia #Dysphagia #Hiatal hernia #GERD #Gout #Glaucoma #Obesity Plan -IV fluid, monitor volume status. -Levophed as needed to keep MAP > 65. -Check a TSH and morning cortisol. -Consider transthoracic echocardiogram. -Dual antiplatelet therapy with Aspirin and Plavix. -Continue home atorvastatin. -Neurochecks and NIHSS. -Patient declined MRI brain. -Monitor diet intake, consider further work-up for anorexia and early satiety. -Hold home antihypertensives. -PT and OT consult. -Cardiac diet. -court recording monitor. -DVT prophylaxis: Lovenox -Code status: DNR/DNI -Disposition: TBD Time Spent With Patient Time: Total time spent is greater than 50% in coordination of care (as documented) at patient's floor/unit and/or counseling patient: QUALITY Stroke Symptom Onset Unknown: No VTE Deep Vein Thrombosis/Pulmonary Embolism Present on Admission: No
[2021-10-15] MEDS ORDERED: ACETAMINOPHEN 500 MG TABLET PO PRN (22:39)
[2021-10-15] MEDS ORDERED: ACETAMINOPHEN 500 MG TABLET PO ONE (22:50)
[2021-10-16] MEDS: 0.9 % SODIUM CHLORIDE 1,000 ML IV SCH ×2 (03:07→05:21)
[2021-10-16] MEDS: 0.9 % SODIUM CHLORIDE 10 ML SYRINGE IV SCH ×3 (05:23→20:45)
[2021-10-16 06:26] LABS: Basophils # (Auto) 0.08 K/mcL (0.00-0.30); Basophils % (Auto) 0.8 % (0.0-2.0); Eosinophils # (Auto) 0.36 K/mcL (0.00-0.70); Eosinophils % (Auto) 3.6 % (0.0-7.0); Hematocrit 36.2 % (34.1-44.9); Hemoglobin 12.1 g/dL (11.2-15.7); Lymphocytes # (Auto) 2.15 K/mcL (1.50-4.80); Lymphocytes % (Auto) 21.8 % (15.5-49.0); Mean Cell Volume 87.9 fL (80.0-100.0); Mean Corpuscular HGB Conc 33.4 g/dL (31.0-36.0); Mean Platelet Volume 9.1 fL (7.4-10.4); Monocytes # (Auto) 1.06 K/mcL (0.10-0.90); Monocytes % (Auto) 10.7 % (1.0-12.0); Neutrophils % (Auto) 63.1 % (38.0-78.0); Platelet Count 261 K/mcL (140-440); RBC 4.12 M/mcL (3.59-5.38); Red Cell Distribution Width 12.7 % (11.5-14.5); WBC 9.9 K/mcL (4.5-11.0)
[2021-10-16 06:49] LABS: Blood Urea Nitrogen 11 mg/dL (8-23); Calcium 9.2 mg/dL (8.6-10.4); Carbon Dioxide 22 mmol/L (22-30); Chloride 103 mmol/L (96-108); Glomerular Filtration Rate 78; Glucose 97 mg/dL (70-105); Thyroid Stimulating Hormone 4.42 uIU/mL (0.27-5.01)
[2021-10-16] MEDS: CLOPIDOGREL 75 MG TABLET PO SCH (10:44)
[2021-10-16] MEDS: ENOXAPARIN 40 MG/0.4 ML SYRINGE SQ SCH (10:44)
[2021-10-16] MEDS: amLODIPine 10 MG TABLET PO SCH (10:44)
[2021-10-16] MEDS: ASPIRIN 81 MG TAB.CHEW CHEWED SCH (10:44)
[2021-10-16] MEDS: DOCUSATE SODIUM 100 MG CAPSULE PO SCH ×2 (10:44→20:44)
--- NOTE | 2021-10-16 11:49 | Internal Med Progress Note ---
SUBJECTIVE Subjective Patient information: Note initiated : 10/16/21 at 11:48 am Service Date, if different from initiated Date: [] Patient: Dinorah Solorio 86 y/o F admitted on 10/14/21 for weakness. Chief Complaint: [] Interval history: Ms. 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 The patient presented to the emergency department with her daughter for difficulty walking, generalized weakness that has been bothering her for about 3 days as well as lack of appetite for about 7 days. In the emergency department there was concern for possible stroke, the patient had a noncontrast CT head followed by a CTA head and neck.There were no acute findings on the CT scans, the CTA head did show a 80% stenosis in the right M2 division of the right middle cerebral artery. There was heavy calcified plaque in the cavernous segment of both intracranial internal carotid arteries resulting in less than 50% stenosis. There was scattered stenosis up to 50% in the remaining anterior middle and posterior cerebral arteries. The CTA neck showed heavy calcific atherosclerotic plaque throughout the brachiocephalic artery resulting in stenosis of 50% or greater, calcified plaque in the proximal left subclavian artery resulting in stenosis less than 50%. Both vertebral internal common and external carotid arteries were widely patent. In addition, the patient was found to be extremely hypotensive. She did say that she took extra blood pressure pills today which is likely the reason for hypotension. Patient's vitals were otherwise stable. CBC showed a mild leukocytosis, complete metabolic panel was unremarkable. Telemetry stroke neurology was consulted, recommended a complete stroke work-up, starting aspirin and Plavix and maintaining normal blood pressure. Hospital medicine was consulted for admission. We discussed the plan of care in detail. The patient does not want an MRI or an echocardiogram as she does not feel it will change manager. She is okay with starting aspirin and Plavix as well as vasopressor support to maintain blood pressure. The patient wishes to be DNR/DNI. 10/15 Patient was off Levophed overnight but resumed this morning for hypotension. Patient was able to ambulate with a walker and physical therapy in the hallway. Feels better overall but continues to require Levophed. Discussed expanding work-up for hypotension if unable to wean off the Levophed by the afternoon. 10/16 Off Levophed, blood pressure slightly elevated. Resumed home Norvasc 10 mg daily, holding home bisoprolol, telmisartan, chlorthalidone. Transthoracic echocardiogram showed LV ejection fraction 60 to 65%, normal right ventricular systolic function, no significant valvular abnormalities. Transfer from to [facility]. Physical exam Head: Atraumatic, normal inspection. Eyes: normal appearance, no scleral icterus. Neck: full ROM Respiratory: no respiratory distress. Cardiovascular: normal rate and rhythm, S1, S2. GI/Abdominal: soft, nontender, no guarding. Extremities: full range of motion, nontender. Neurological: CN II-XII intact, intact motor, intact sensation. Psychiatric: normal mood. Skin: warm, normal color Constitutional Vitals: Vital Signs Temp Pulse Resp BP Pulse Ox 98.2 F 66 16 139/53 92 10/16/21 08:01 10/16/21 08:01 10/16/21 10:01 10/16/21 10:01 10/16/21 10:01 Period Temp Pulse Resp BP Sys/Johnston Pulse Ox Last 24 Hr 97.6 F-98.6 F 59-79 16-20 65-168/43-118 92-99 Intake and Output 10/15/21 10/16/21 10/16/21 21:59 05:59 13:59 Intake Total 780 830 161 Output Total 1025 700 875 Balance -245 130 -714 Weight 68.765 kg Intake & Output: Intake & Output 10/15/21 10/16/21 10/16/21 21:59 05:59 13:59 Intake Total 780 830 161 Output Total 1025 700 875 Balance -245 130 -714 Weight 68.765 kg Intake: IV 540 830 161 Sodium Chloride 0.9% 1,000 ml @ 229 829 75 mls/hr IV .[id number] [facility] Rx#: [id number] Sodium Chloride 0.9% 250 ml @ 237 161 20 mls/hr IV .[id number] [facility] Rx#: [id number] Levophed 8 mg In Sodium 74 1 Chloride 0.9% 242 ml @ 10 MCG/ MIN 18.75 mls/hr IV Q14H [facility] Rx #:[id number] Oral 240 Output: Urine Catheter Amount 350 Void Amount 410 503 875 Other: Meal Dinner Percent of Meal Consumed 100% Feeding Ability Independent Urine Appearance Clear Clear Clear Urine Color Bright Yellow Bright Yellow Bright Yellow Urine Odor Normal Normal OBJ DATA Labs CBC & Chem 7: 10/16/21 05:28 10/16/21 05:28 Labs: Abnormal Lab Results 10/16/21 10/14/21 10/14/21 05:28 14:45 14:45 WBC 11.5 H Randolph # (Auto) 1.06 H 1.28 H Chloride 95 L Glucose 119 H Meds: Medications Acetaminophen (Acetaminophen 500 Mg Tablet) 500 mg PO Q4HP PRN; Protocol PRN Reason: Per Pain Protocol Last Admin: 10/15/21 22:45 Dose: 500 mg Documented by: Amlodipine Besylate (Amlodipine 10 Mg Tablet) 10 mg PO DAILY [facility] Last Admin: 10/16/21 10:44 Dose: 10 mg Documented by: Aspirin (Aspirin 81 Mg Tab.Chew) 81 mg CHEWED DAILY [facility] Last Admin: 10/16/21 10:44 Dose: 81 mg Documented by: Atorvastatin Calcium (Atorvastatin 40 Mg Tablet) 40 mg PO QPM [facility] Clopidogrel Bisulfate (Clopidogrel 75 Mg Tablet) 75 mg PO DAILY [facility] Last Admin: 10/16/21 10:44 Dose: 75 mg Documented by: Docusate Sodium (Docusate Sodium 100 Mg Capsule) 100 mg PO BID [facility] Last Admin: 10/16/21 10:44 Dose: 100 mg Documented by: Enoxaparin Sodium (Enoxaparin 40 Mg/0.4 Ml Syringe) 40 mg SQ DAILY [facility] Last Admin: 10/16/21 10:44 Dose: 40 mg Documented by: Hydralazine HCl (Hydralazine 20 Mg/Ml Vial) 10 mg IV Q4-6HP PRN PRN Reason: Blood Pressure - High Norepinephrine Bitartrate 8 mg (/ Sodium Chloride) 250 mls @ 18.75 mls/hr IV Q14H [facility]; Protocol Last Admin: 10/15/21 23:16 Dose: Not Given Documented by: Labetalol HCl (Labetalol 5 Mg/Ml Ml) 10 mg IV Q10M PRN PRN Reason: Blood Pressure - High Lactulose (Lactulose 20 Gm/30 Ml Oral.Haydee) 10 gm PO DAILYP PRN PRN Reason: Constipation Latanoprost (Latanoprost Ophth Drops 2.5ml Bottle) 1 gtt OU HS [facility] Omeprazole (Omeprazole 20 Mg Capsule) 40 mg PO ACB [facility] Ondansetron HCl (Ondansetron 4 Mg/2 Ml Vial) 4 mg IV Q4HP PRN; Protocol PRN Reason: Nausea And Vomiting Lubiprostone 24 Mcg (Capsule) 1 dose PO BID [facility] Pneumococcal Polyvalent Vaccine (Pneumococcal 23-Milagros P-Sac Vac 0.5 Ml Syringe) 0.5 ml IM .ONCE ONE Stop: 10/17/21 10:01 Senna (Sennosides 1 Tablet) 2 tab PO HSP PRN PRN Reason: Constipation Sodium Chloride (0.9 % Sodium Chloride 10 Ml Syringe) 10 ml IV Q8 [facility] Last Admin: 10/16/21 05:23 Dose: 10 ml Documented by: Timolol Maleate (Timolol 0.5% Ophth Drops Bottle 5ml) 1 gtt OU BID [facility] A/P Narrative A/P Narrative: Assessment: 86-year-old female with multiple comorbidities admitted for generalized weakness, approximately 7 days of anorexia and early satiety as well as hypotension initially felt to be related to the patient taking an extra days worth of blood pressure medications. #Improving generalized weakness #Improved anorexia #Initial concern for acute in ischemic stroke however seems increasingly unlikely -The patient declined MRI brain. -Right MCA 80% stenosis noted on CTA head. #Resolved acute hypotension due to unintentional antihypertensive medication overdose #Subclavian steal syndrome s/p subclavian artery stent 2018 #Coronary artery disease #Peripheral artery disease #Essential hypertension #Hyperlipidemia #Dysphagia #Hiatal hernia #GERD #Gout #Glaucoma #Obesity Plan -Transfer to [facility], ongoing adjustment of antihypertensive meds. -Discontinue IV fluid and Levophed. -Dual antiplatelet therapy with Aspirin and Plavix. -Continue home atorvastatin. -Neurochecks and NIHSS. -Patient declined MRI brain. -Resume home Norvasc, holding home chlorthalidone, telmisartan, bisoprolol. -Hold home antihypertensives. -PT and OT consult. -Cardiac diet. -DVT prophylaxis: Lovenox -Code status: DNR/DNI -Disposition: Probably home when stable possibly with home health. Time Spent With Patient Time: Total time spent is greater than 50% in coordination of care (as documented) at patient's floor/unit and/or counseling patient: QUALITY Stroke Symptom Onset Unknown: No VTE Deep Vein Thrombosis/Pulmonary Embolism Present on Admission: No
[2021-10-16] MEDS: 0.9 % SODIUM CHLORIDE 250 ML IV SCH (12:46)
[2021-10-16] MEDS: TIMOLOL 0.5% OPHTH DROPS BOTTLE 5ML OU SCH (20:44)
[2021-10-16] MEDS ORDERED: ATORVASTATIN 40 MG TABLET PO SCH (21:00)
[2021-10-16] MEDS ORDERED: LATANOPROST OPHTH DROPS 2.5ML BOTTLE OU SCH (21:00)
[2021-10-17] MEDS: 0.9 % SODIUM CHLORIDE 10 ML SYRINGE IV SCH (05:53)
[2021-10-17] MEDS ORDERED: OMEPRAZOLE 20 MG CAPSULE PO SCH (07:30)
[2021-10-17] MEDS: amLODIPine 10 MG TABLET PO SCH (08:08)
[2021-10-17] MEDS: ASPIRIN 81 MG TAB.CHEW CHEWED SCH (08:08)
[2021-10-17] MEDS: CLOPIDOGREL 75 MG TABLET PO SCH (08:10)
[2021-10-17] MEDS: DOCUSATE SODIUM 100 MG CAPSULE PO SCH (08:10)
[2021-10-17] MEDS: ENOXAPARIN 40 MG/0.4 ML SYRINGE SQ SCH (08:11)
[2021-10-17] MEDS: TIMOLOL 0.5% OPHTH DROPS BOTTLE 5ML OU SCH (08:12)
[2021-10-17] MEDS ORDERED: OLMESARTAN MEDOXOMIL 20 MG TABLET PO SCH (09:00)
[2021-10-17] MEDS ORDERED: PNEUMOCOCCAL 23-VAL P-SAC VAC 0.5 ML SYRINGE IM ONE (10:00)
[2021-10-17] MEDS ORDERED: BISOPROLOL 5 MG TABLET PO SCH (10:15)
--- NOTE | 2021-10-17 10:24 | Discharge Summary ---
Discharge Provider Provider Patient information: Note initiated : 10/17/21 at 10:17 am Service Date, if different from initiated Date: [] Patient: Dinorah Solorio 86 y/o F admitted on 10/14/21 for weakness. Chief Complaint: [] Date of admission: 10/14/21 20:43 Discharge date: 10/17/21 Primary care physician: Unknown Unknown Consults: 10/14/21 Consult to Physician [CONS] Stat Comment: Consulting Provider: Mihai Castillo Reason For Exam: Physician to Consult Discharge Meds Discharge Medications Home Medications Lactobacillus acidophilus and rhamnosus 10 billion cell capsule (Digestive Health Probiotic) 1 cap PO QAM cap 06/05/19 [History Confirmed 10/16/21 Last Taken Unknown] ascorbate calcium (vitamin C) 1,200 mg PO DAILY 06/05/19 [History Confirmed 10/15/21 Last Taken Unknown] multivitamin (Daily Multi-Vitamin) 1 tab PO QAM 06/05/19 [History Confirmed 10/15/21 Last Taken Unknown] amlodipine 10 mg tablet 10 mg PO DAILY #90 tab 07/09/19 [Rx Confirmed 10/15/21 Last Taken Unknown] bisoprolol fumarate 10 mg tablet 10 mg PO DAILY #90 tab 07/09/19 [Rx Confirmed 10/15/21 Last Taken Unknown] telmisartan 80 mg tablet 80 mg PO DAILY #90 tab 05/15/20 [Rx Confirmed 10/15/21 Last Taken Unknown] atorvastatin 40 mg tablet 40 mg PO QPM #30 tab 08/11/20 [Rx Confirmed 10/15/21 Last Taken Unknown] latanoprost 0.005 % eye drops 1 drp OPHTHALMIC (EYE) HS 10/14/21 [History Confirmed 10/15/21 Last Taken Unknown] lubiprostone 24 mcg capsule 1 cap PO BID 10/14/21 [History Confirmed 10/15/21 Last Taken Unknown] timolol maleate 0.5 % eye drops 1 drp OPHTHALMIC (EYE) BID 10/14/21 [History Confirmed 10/15/21 Last Taken Unknown] omeprazole 40 mg capsule,delayed release 1 cap PO QAM 10/15/21 [History Confirmed 10/15/21 Last Taken Unknown] aspirin 81 mg chewable tablet (Children's Aspirin) 81 mg PO DAILY 90 Days #90 tab 10/17/21 [Rx Last Taken Unknown] clopidogrel 75 mg tablet 75 mg PO DAILY #90 tab 10/17/21 [Rx Last Taken Unknown] COURSE Hospital Course Hospital course: Ms. 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 The patient presented to the emergency department with her daughter for difficulty walking, generalized weakness that has been bothering her for about 3 days as well as lack of appetite for about 7 days. In the emergency department there was concern for possible stroke, the patient had a noncontrast CT head followed by a CTA head and neck.There were no acute findings on the CT scans, the CTA head did show a 80% stenosis in the right M2 division of the right middle cerebral artery. There was heavy calcified plaque in the cavernous segment of both intracranial internal carotid arteries resulting in less than 50% stenosis. There was scattered stenosis up to 50% in the remaining anterior middle and posterior cerebral arteries. The CTA neck showed heavy calcific atherosclerotic plaque throughout the brachiocephalic artery resulting in stenosis of 50% or greater, calcified plaque in the proximal left subclavian artery resulting in stenosis less than 50%. Both vertebral internal common and external carotid arteries were widely patent. In addition, the patient was found to be extremely hypotensive. She did say that she took extra blood pressure pills today which is likely the reason for hypotension. Patient's vitals were otherwise stable. CBC showed a mild leukocytosis, complete metabolic panel was unremarkable. Telemetry stroke neurology was consulted, recommended a complete stroke work-up, starting aspirin and Plavix and maintaining normal blood pressure. Hospital medicine was consulted for admission. We discussed the plan of care in detail. The patient does not want an MRI or an echocardiogram as she does not feel it will change control specialist. She is okay with starting aspirin and Plavix as well as vasopressor support to maintain blood pressure. The patient wishes to be DNR/DNI. 10/15 Patient was off Levophed overnight but resumed this morning for hypotension. Patient was able to ambulate with a walker and physical therapy in the hallway. Feels better overall but continues to require Levophed. Discussed expanding work-up for hypotension if unable to wean off the Levophed by the afternoon. 10/16 Off Levophed, blood pressure slightly elevated. Resumed home Norvasc 10 mg daily, holding home bisoprolol, telmisartan, chlorthalidone. Transthoracic echocardiogram showed LV ejection fraction 60 to 65%, normal right ventricular systolic function, no significant valvular abnormalities. Transfer from to [facility]. 10/17 Blood pressure elevated, resumed home telmisartan and bisoprolol. Discharged to home with home health RN, PT and OT. The patient was instructed to keep track of her blood pressure at least twice a day and take recordings to her primary care provider at follow-up. Holding chlorthalidone at discharge, this may be resumed depending on her home blood pressure readings. Patient is also discharged on aspirin and Plavix per telestroke neurology recommendations. I ordered aspirin and Plavix for 90 days given the high-grade right MCA stenosis. This will be followed by discontinuation of aspirin and continuation of Plavix indefinitely. Physical exam Head: Atraumatic, normal inspection. Eyes: normal appearance, no scleral icterus. Neck: full ROM Respiratory: no respiratory distress. Cardiovascular: normal rate and rhythm, S1, S2. GI/Abdominal: soft, nontender, no guarding. Extremities: full range of motion, nontender. Neurological: CN II-XII intact, intact motor, intact sensation. Psychiatric: normal mood. Skin: warm, normal color Discharge diagnosis: Acute hypotension secondary to unintentional blood pressure medication over Secondary discharge diagnosis: 80% stenosis of right posterior M2 division of right middle cerebral artery Essential hypertension Peripheral arterial disease Time Spent with Patient Time attestation: Total time spent providing and/or coordinating discharge services: EXAM Constitutional Vitals: Temp Pulse Resp BP Pulse Ox 99 F 83 21 154/70 97 10/17/21 06:59 10/17/21 04:20 10/17/21 06:59 10/17/21 06:59 10/17/21 06:59 Discharge Plan Patient/Caregiver Discharge Instructions Activity: increase activity as tolerated Diet: Regular Diet Activity Restrictions/Additional Instructions: You are discharging on 3 of your prior for blood pressure medications. These are amlodipine, telmisartan and bisoprolol. We have not resumed chlorthalidone at discharge. Measure your blood pressure your blood pressure at least twice a day and write down the blood pressure readings. Take this information to your primary care provider at your next visit, this will help your primary care provider manage your hypertension. If your blood pressure is greater than 160 mmHg systolic or 90 mmHg diastolic, call your primary care provider for further instructions. You are also discharged on aspirin and Plavix for 90 days, after 90 days stop taking aspirin and continue Plavix indefinitely. Prescriptions: New aspirin [Children's Aspirin] 81 mg Tablet,Chewable 81 mg PO DAILY 90 Days Qty: 90 0RF clopidogrel 75 mg Tablet 75 mg PO DAILY Qty: 90 5RF Continued telmisartan 80 mg tablet 80 mg PO DAILY Qty: 90 0RF atorvastatin 40 mg tablet 40 mg PO QPM Qty: 30 0RF Rx Instructions: Schedule appointment before further refills. amlodipine 10 mg tablet 10 mg PO DAILY Qty: 90 3RF bisoprolol fumarate 10 mg tablet 10 mg tablet 10 mg PO DAILY Qty: 90 3RF multivitamin [Daily Multi-Vitamin] Tablet 1 tab PO QAM 0RF ascorbate calcium (vitamin C) 1,200 mg PO DAILY 0RF Label Comments: 1 po and 1 po qpm L. acidophilus-L. rhamnosus 10 billion cell capsule 10 billion cell capsule 1 cap PO QAM 0RF latanoprost 0.005 % drops 1 drp OPHTHALMIC (EYE) HS 0RF Label Comments: BOTH EYES timolol maleate 0.5 % drops 1 drp OPHTHALMIC (EYE) BID 0RF Label Comments: BOTH EYES lubiprostone 24 mcg capsule 1 cap PO BID 0RF omeprazole 40 mg capsule,delayed release(DR/EC) 1 cap PO QAM 0RF Discontinued chlorthalidone 25 mg tablet 25 mg PO DAILY Qty: 90 3RF clopidogrel 75 mg tablet 75 mg PO DAILY Qty: 90 3RF Follow Up Plan Follow up with: Lanette Whitaker PA-C [Physician] - Patient Disposition: Home Health Service Overall status at discharge: patient is progressing back to baseline Discharge Orders: Discharge Order (Routine); Ordered 10/17/21 Ordered By: Mihai LANE VTE Deep Vein Thrombosis/Pulmonary Embolism Present on Admission: No
== END 2021-10-17 12:38 | disposition home health service (06) | DRG 918 ==
LOC: ED 13:59 → ICU 20:43 → MEDSUR 10-16 12:17
PROVIDERS: ADMIT Internal Medicine; ATTEND Internal Medicine